=== PATIENT | female | born 1930 | race Hispanic/Latino ===

== ENCOUNTER 2016-12-17 16:53 | Emergency (ER) | payer MEDICARE ==
[2016-12-17] MEDS ORDERED: MORPHINE IV ONE (18:24)
--- NOTE | 2016-12-17 18:45 | Emergency Department Report ---
ED Upper Extremity Inj HPI - General Chief Complaint: Fall Stated Complaint: POSS LT WRIST FX Time Seen by Provider: 12/17/16 18:11 Source: patient, EMS Mode of arrival: Stretcher Limitations: No Limitations - History of Present Illness Initial Comments: 86-year-old female presents to the hospital complains of left wrist injury after fall. Patient states she was shopping and fell injuring her left wrist while trying to break her fall. Patient started syncope, chest pain, shortness of breath, dizziness, headache, head injury, or LOC. She is right-hand dominant. Complains of 3/10 wrist pain at this time while splinted. Pain is constant, worse and movement and palpation. - Related Data Previous Rx's Medication Instructions Recorded Last Taken Type Cephalexin [Keflex] 500 mg PO TID #14 capsule 06/18/16 Unknown Rx Acetaminophen/Codeine 1 tab PO Q8HR PRN #20 tab 12/17/16 Unknown Rx [Acetaminophen-Codeine #3 TAB] Ibuprofen [Motrin] 400 mg PO Q8H PRN #30 tablet 12/17/16 Unknown Rx Allergies Allergy/AdvReac Type Severity Reaction Status Date / Time No Known Allergies Allergy Unverified 06/17/16 21:25 ED Review of Systems ROS: Stated complaint: POSS LT WRIST FX Other details as noted in HPI Comment: All other systems reviewed and negative Other: Constitutional: No fevers chills Eyes: No eye pain visual changes ENT: No ear pain or throat pain Neck: Denies pain Respiratory: Denies cough wheezing shortness of breath Cardiovascular: Denies chest pain, palpitations, syncope GI: Denies abdominal pain, nausea, vomiting, diarrhea : Denies dysuria Musculoskeletal: As per HPI Skin: Denies rash, lesions, erythema Neurologic: Denies headache, numbness, weakness Psychiatric: Denies suicidal ideation, hallucinations ED Past Medical Hx - Social History Smoking Status: Never Smoker Substance Use Type: None - Medications Home Medications: Home Medications Medication Instructions Recorded Confirmed Last Taken Type Cephalexin [Keflex] 500 mg PO TID #14 capsule 06/18/16 Unknown Rx Acetaminophen/Codeine 1 tab PO Q8HR PRN #20 tab 12/17/16 Unknown Rx [Acetaminophen-Codeine #3 TAB] Ibuprofen [Motrin] 400 mg PO Q8H PRN #30 tablet 12/17/16 Unknown Rx ED Physical Exam - General Limitations: No Limitations - Other Other exam information: General: No limitations, patient is alert in no acute distress Head exam: Atraumatic, normocephalic Eyes exam: Normal appearance, pupils equal reactive to light, extraocular movements intact ENT: Moist mucous membrane, normal oropharynx Neck exam: Normal inspection, full range of motion, no meningismus nontender Respiratory exam: Clear to auscultation bilateral, no wheezes, rales, crackles Cardiovascular: Normal rate and rhythm, normal heart sounds Abdomen: Soft, nondistended, and nontender, with normal bowel sounds, no rebound, or guarding Extremity: Left wrist deformity with limited range of motion. 2+ radial pulse. Full range of motion and sensation to left hand and fingers Back: Normal Inspection, full range of motion, no tenderness Neurologic: Alert, oriented x3, cranial nerves intact, no motor or sensory deficit Psychiatric: normal affect, normal mood Skin: Warm, dry, intact ED Course Vital Signs 12/17/16 12/17/16 17:46 19:49 Temperature 98 F Pulse Rate 71 71 Respiratory 18 12 Rate Blood Pressure 149/67 Blood Pressure 99/62 [Right] O2 Sat by Pulse 92 96 Oximetry - Reevaluation(s) Reevaluation #1: 12/17/16 18:46 Morphine 2 mg, Zofran x-ray ordered - Consultations Consultation #1: 12/17/16 19:35 Case d/w Dr. Isbell. Xray images reviewed. Rec hematoma block and reduction attempt otherwise he may reduce in office. 12/17/16 21:10 - Orthopedic Fracture Reduction Fracture #1 Consent Obtained: verbal consent Time Out Performed: Yes Side: left Fracture Reduction Location: radius Analgesia: hematoma block Technique: direct manipulation Post-Reduction Neuro Exam: intact Post-Reduction Vascular Exam: intact Splint Applied: Yes Patient Tolerated Procedure: well Additional Comments: 5ml of Lidocaine 1% used for hematoma block ED Medical Decision Making - Radiology Data Radiology results: image reviewed (left wrist xray: distal radius and ulna styloid fracture) interpreted by me: repeat post reduction attempt film: mild improvement in distal radius fragment - Medical Decision Making Patient declined IV medication, she is driving home. Attempted to put pressure on the distal radius to improve angulation after hematoma block performed. - Differential Diagnosis fracture, contusion, sprain Critical Care Time: No Critical care attestation.: If time is entered above; I have spent that time in minutes in the direct care of this critically ill patient, excluding procedure time. ED Disposition Clinical Impression: Wrist fracture, left Qualifiers: Encounter type: initial encounter Fracture type: closed Qualified Code(s): S62.102A - Fracture of unspecified carpal bone, left wrist, initial encounter for closed fracture Disposition: DISCHARGED TO HOME OR SELFCARE Is pt being admited?: No Does the pt Need Aspirin: No Condition: Stable Instructions: Wrist Fracture in Adults (ED) Additional Instructions: Take the medication as prescribed. Follow-up with orthopedic doctor provided with orthopedic doctor vitreous. Return if symptoms worsen. Prescriptions: Acetaminophen/Codeine [Acetaminophen-Codeine #3 TAB] 1 tab PO Q8HR PRN #20 tab PRN Reason: Pain Ibuprofen [Motrin] 400 mg PO Q8H PRN #30 tablet PRN Reason: Pain Referrals: FORTINO ISBELL MD [Staff Physician] - 2-3 Days Time of Disposition: 22:09
[2016-12-17] MEDS: ZOFRAN IV ONE ×2 (19:30→21:42)
[2016-12-17] MEDS ORDERED: XYLOCAINE 1% 20 mL ONE (20:29)
[2016-12-17 22:13] VITALS: BP 90/88
--- NOTE | 2016-12-18 09:23 | XRay Report ---
Left wrist 2 views: History: Status post splinting with reduction attempt. The Findings: There is fracture Colles'noted distal radius. Fracture fragments are in satisfactory alignment and apposition. No dislocation. Impression: Stable fracture.
--- NOTE | 2016-12-18 09:24 | XRay Report ---
Left wrist 2 views: History: Fall, pain, Findings: There is fracture Colles'noted distal radius with impaction at the site of fracture and dorsal tilt of the distal fragment. Impression: Findings as described.
== END 2016-12-17 23:14 | disposition home or self-care (01) ==
LOC: ED 16:53
DX: S52.512A Displaced fracture of left radial styloid process, initial encounter for closed fracture (principal); S52.612A Displaced fracture of left ulna styloid process, initial encounter for closed fracture; W19.XXXA Unspecified fall, initial encounter; Y93.9 Activity, unspecified; Y99.9 Unspecified external cause status; Y92.89 Other specified places as the place of occurrence of the external cause